=== PATIENT | female | born 1945 ===

== ENCOUNTER 2021-06-02 12:05 | Emergency (ER) | payer OTHER, SELFPAY ==
--- NOTE | 2021-06-02 12:39 | RAD REPORT ---
EXAM DESCRIPTION: CT - Head Brain Wo Cont - 06/02/2021 12:27 pm CLINICAL HISTORY: TRAUMA COMPARISON: No comparisons TECHNIQUE: All CT scans are performed using dose optimization technique as appropriate and may inclu de automated exposure control or mA/KV adjustment according to patient size. FINDINGS: No skull fracture. No mastoid effusion. Paranasal sinuses are well aerated. Right occipita l scalp hematoma. Chronic small vessel ischemic changes which are moderate. No acute intracranial hem orrhage. No mass effect or midline shift. IMPRESSION: No acute intracranial abnormality. No skull fracture.
--- NOTE | 2021-06-02 12:44 | EDPHYS ---
Physician Documentation [facility] Name: Macey Herrera Age: 75 yrs Sex: Female : 1945 Arrival Date: 06/02/2021 Time: 12:14 Bed 17 Private MD: ED Physician Robetr Corey HPI: 06/02 12:39 This 75 yrs old Unknown Female presents to ER via Unassigned with complaints of Fall. jr8 12:39 The patient or guardian reports pain, swelling, tenderness. The complaints affect the jr8 right side of the back of head. Onset: The symptoms/episode began/occurred acutely, today. Associated signs and symptoms: The patient has no apparent associated signs or symptoms, Loss of consciousness: This patient did not experience any loss of consciousness. Severity of symptoms: At their worst the symptoms were mild, in the emergency department the symptoms are unchanged. The patient has not experienced similar symptoms in the past. The patient has not recently seen a physician. Is a 75-year-old female patient that presented emergency room via EMS after sustaining an accidental fall at home. Patient stated that she was trying to pull up her undergarments and fell backwards hitting the back of her head. Denies loss of consciousness or any symptoms at this time other than pain to the site where she had her head. ROS: 12:39 Eyes: Negative for injury, pain, redness, and discharge, ENT: Negative for injury, jr8 pain, and discharge, Neck: Negative for injury, pain, and swelling, Cardiovascular: Negative for chest pain, palpitations, and edema, Respiratory: Negative for shortness of breath, cough, wheezing, and pleuritic chest pain, Abdomen/GI: Negative for abdominal pain, nausea, vomiting, diarrhea, and constipation, Back: Negative for injury and pain, MS/Extremity: Negative for injury and deformity, Neuro: Negative for headache, weakness, numbness, tingling, and seizure. 12:39 Skin: Positive for hematoma. Exam: 12:39 Constitutional: This is a well developed, well nourished patient who is awake, alert, jr8 and in no acute distress. Eyes: Pupils equal round and reactive to light, extra-ocular motions intact. Lids and lashes normal. Conjunctiva and sclera are non-icteric and not injected. Cornea within normal limits. Periorbital areas with no swelling, redness, or edema. ENT: Nares patent. No nasal discharge, no septal abnormalities noted. Tympanic membranes are normal and external auditory canals are clear. Oropharynx with no redness, swelling, or masses, exudates, or evidence of obstruction, uvula midline. Mucous membranes moist. Neck: Trachea midline, no thyromegaly or masses palpated, and no cervical lymphadenopathy. Supple, full range of motion without nuchal rigidity, or vertebral point tenderness. No Meningismus. Chest/axilla: Normal chest wall appearance and motion. Nontender with no deformity. No lesions are appreciated. Cardiovascular: Regular rate and rhythm with a normal S1 and S2. No gallops, murmurs, or rubs. Normal PMI, no JVD. No pulse deficits. Respiratory: Lungs have equal breath sounds bilaterally, clear to auscultation and percussion. No rales, rhonchi or wheezes noted. No increased work of breathing, no retractions or nasal flaring. Abdomen/GI: Soft, non-tender, with normal bowel sounds. No distension or tympany. No guarding or rebound. No evidence of tenderness throughout. Back: No spinal tenderness. No costovertebral tenderness. Full range of motion. Skin: Warm, dry with normal turgor. Normal color with no rashes, no lesions, and no evidence of cellulitis. MS/ Extremity: Pulses equal, no cyanosis. Neurovascular intact. Full, normal range of motion. Neuro: Awake and alert, GCS 15, oriented to person, place, time, and situation. Cranial nerves II-XII grossly intact. Motor strength 5/5 in all extremities. Sensory grossly intact. 12:39 Head/face: Noted is hematoma, that is mild, of the right side of the back of head. Vital Signs: 13:10 BP 129 / 57; Pulse 75; Resp 16; Temp 98.1; Pulse Ox 98% ; Weight 81.65 kg; Height 5 ft. tc5 5 in. (165.10 cm); Pain 8/10; 13:16 BP 129 / 56; Pulse 75; Resp 15; Temp 98.1; Pulse Ox 98% ; Weight 81.65 kg; Height 5 ft. tc5 5 in. (165.10 cm); Pain 8/10; 13:16 Body Mass Index 29.95 (81.65 kg, 165.10 cm) tc5 Jayjay Coma Score: 12:39 Eye Response: spontaneous(4). Verbal Response: oriented(5). Motor Response: obeys jr8 commands(6). Total: 15. MDM: 12:17 Patient medically screened. jr8 12:42 Data reviewed: vital signs, nurses notes, radiologic studies, CT scan. Data jr8 interpreted: Pulse oximetry: on room air is 100 %. Interpretation: normal. Counseling: I had a detailed discussion with the patient and/or guardian regarding: the historical points, exam findings, and any diagnostic results supporting the discharge/admit diagnosis, radiology results, the need for outpatient follow up, a family practitioner, to return to the emergency department if symptoms worsen or persist or if there are any questions or concerns that arise at home. ED course: Patient hemodynamically stable. No acute findings on physical exam other than the small hematoma to the right side of the head. CT scan of the head unremarkable other than the present hematoma that is already been seen. No other focal deficits on exam. We will send patient home with close follow-up and return precautions. Patient good with this at this time.. 06/02 12:17 Order name: CT Head Brain wo Cont; Complete Time: 12:41 jr8 Administered Medications: No medications were administered Disposition: 17:00 Co-signature as Attending Physician, Robert Corey MD I agree with the assessment and rn plan of care. Attestation: The patient's history, exam findings, diagnostics, and a summary of any interventions or procedures was reviewed in detail with [place]. Disposition Summary: 06/02/21 12:43 Discharge Ordered Location: Home jr8 Problem: new jr8 Symptoms: have improved jr8 Condition: Stable jr8 Diagnosis - Unspecified superficial injury of other part of head, initial encounter jr8 Followup: jr8 - With: Private Physician - When: 2 - 3 days - Reason: Recheck today's complaints, Continuance of care, Re-evaluation by your physician Discharge Instructions: - Discharge Summary Sheet jr8 - Head Injury, Adult jr8 Forms: - Medication Reconciliation Form jr8 - Thank You Letter jr8 - Antibiotic Education jr8 - Prescription Opioid Use jr8 Signatures: Dispatcher [employer] EDMS Robert Corey MD MD rn Roszak, Josh, PA PA jr8
--- NOTE | 2021-06-02 14:42 | ER ---
Nurse's Notes [facility] Name: Macey Herrera Age: 75 yrs Sex: Female : 1945 Arrival Date: 06/02/2021 Time: 12:14 Bed 17 Private MD: Diagnosis: Unspecified superficial injury of other part of head, initial encounter Presentation: 06/02 13:10 Chief complaint: Patient states: fall after shower. was walking with walker and got off tc5 balance, states she is suppose to have someone with her while she showers but didn't want to ask. Coronavirus screen: Vaccine status: Patient reports receiving the 2nd dose of the covid vaccine. Ebola Screen: Patient negative for fever greater than or equal to 101.5 degrees Fahrenheit, and additional compatible Ebola Virus Disease symptoms Patient denies exposure to infectious person. Patient denies travel to an Ebola-affected area in the 21 days before illness onset. Initial Sepsis Screen: Does the patient meet any 2 criteria? No. Patient's initial sepsis screen is negative. Risk Assessment: Do you want to hurt yourself or someone else? Patient reports no desire to harm self or others. Onset of symptoms was June 02, 2021 at 09:00. 13:10 Method Of Arrival: EMS: [facility] tc5 13:10 Acuity: EZEQUIEL 3 tc5 14:28 Initial Sepsis Screen: Does the patient have a suspected source of infection? No. iw Patient's initial sepsis screen is negative. Triage Assessment: 13:14 General: Appears uncomfortable, Behavior is calm, cooperative, appropriate for age. tc5 Pain: Complains of pain in right parietal area and occipital area. EENT: No deficits noted. Neuro: No deficits noted. Reports GLF hit head denies LOC.. Cardiovascular: No deficits noted. Respiratory: No deficits noted. GI: No deficits noted. : No deficits noted. Musculoskeletal: brace to rt knee. Screenin:17 Abuse screen: Denies threats or abuse. Denies injuries from another. Nutritional tc5 screening: No deficits noted. Tuberculosis screening: No symptoms or risk factors identified. Fall Risk Ambulatory Aid- Gait-. Assessment: 13:16 Reassessment: Patient appears in no apparent distress at this time. No changes from tc5 previously documented assessment. General: Appears uncomfortable, Behavior is calm, cooperative, appropriate for age, sister at bedside.. Vital Signs: 13:10 BP 129 / 57; Pulse 75; Resp 16; Temp 98.1; Pulse Ox 98% ; Weight 81.65 kg; Height 5 ft. tc5 5 in. (165.10 cm); Pain 8/10; 13:16 BP 129 / 56; Pulse 75; Resp 15; Temp 98.1; Pulse Ox 98% ; Weight 81.65 kg; Height 5 ft. tc5 5 in. (165.10 cm); Pain 8/10; 13:16 Body Mass Index 29.95 (81.65 kg, 165.10 cm) tc5 Jayjay Coma Score: 12:39 Eye Response: spontaneous(4). Verbal Response: oriented(5). Motor Response: obeys jr8 commands(6). Total: 15. ED Course: 12:14 Patient arrived in ED. am2 12:17 Pérez Pham PA is PHCP. jr8 12:17 Robert Corey MD is Attending Physician. jr8 12:27 CT Head Brain wo Cont In Process Unspecified. EDMS 12:56 Aline Ramos, IRAM is Primary Nurse. tc5 13:14 Triage completed. tc5 13:16 Arm band placed on. iw 14:27 No provider procedures requiring assistance completed. Patient did not have IV access iw during this emergency room visit. Administered Medications: No medications were administered Outcome: 12:43 Discharge ordered by . jr8 14:27 Discharged to home ambulatory. iw 14:27 Condition: good 14:41 Patient left the ED. aj2 Signatures: Dispatcher [employer] Olive Berger RN RN iw Roszak, Josh, PA PA jr8 Tayler Pardo am2 Milagro Munguia aj2 Aline Ramos RN RN tc5
[2021-06-02 14:48] VITALS: TEMP 98.1; O2SAT 98
[2021-06-02 14:49] VITALS: BP 129/56
== END 2021-06-02 14:41 | disposition home or self-care (01) ==
LOC: ER 12:05
DX: S00.83XA Contusion of other part of head, initial encounter (principal); W19.XXXA Unspecified fall, initial encounter; Y93.89 Activity, other specified; Y92.009 Unspecified place in unspecified non-institutional (private) residence as the place of occurrence of the external cause
CPT/HCPCS: 70450; 99283